=== PATIENT | male | born 1960 | race Asian ===

== ENCOUNTER → 2019-03-28 | Outpatient (CLI) | payer BC ==
[~2019-03-28] MED LIST: ATOR40TA70 PO; FEXO180T87 PO; FLONASE INH; IPRA0.2S51 IH; LISI-186 PO
[2019-03-28 09:56] LABS: BASOPHILS % 0.8 % (0.0-2.0); EOSINOPHILS % 1.9 % (0.0-5.0); HEMATOCRIT. 45.3 % (42.0-52.0); HEMOGLOBIN. 15.6 g/dL (14.0-18.0); LYMPHOCYTES % 26.8 % (20.0-50.0); MEAN CORPUSCULAR HEMOGLOBIN 31.5 pg (28.0-32.0); MEAN CORPUSCULAR VOLUME 91.7 fL (80.0-94.0); MEAN PLATELET VOLUME 6.5 fl (7.4-10.4); NEUTROPHILS % 63.5 % (40.0-76.0); PLATELET 253 x1000/uL (130-400); RED BLOOD CELL COUNT 4.94 mill/uL (4.7-6.1); RED CELL DISTRIBUTION WIDTH 12.9 % (11.6-14.6)
[2019-03-28 10:01] LABS: CHLORIDE 107 mEq/L (98-107)
[2019-03-28 10:09] LABS: HDL CHOLESTEROL 58 mg/dL (40-59); LDL CHOLESTEROL 104 mg/dL (5-100)
[2019-03-28 10:10] LABS: T4 FREE 1.02 ng/dL (0.76-1.46)
== END | disposition home or self-care (01) ==
LOC: CARD 09:28
PROVIDERS: ATTEND Specialist
DX: I10 Essential (primary) hypertension (principal); R94.31 Abnormal electrocardiogram [ECG] [EKG]
CPT/HCPCS: 36415; 80061; 84439; 84443; 84481; 93017; 93306

== ENCOUNTER → 2019-09-28 | Outpatient (CLI) | payer BC ==
[2019-09-28 09:36] LABS: BASOPHILS % 0.3 % (0.0-2.0); EOSINOPHILS % 1.6 % (0.0-5.0); HEMATOCRIT. 45.4 % (42.0-52.0); HEMOGLOBIN. 15.9 g/dL (14.0-18.0); MEAN CORPUSCULAR HEMOGLOBIN 32.2 pg (28.0-32.0); MEAN CORPUSCULAR VOLUME 92.2 fL (80.0-94.0); MEAN PLATELET VOLUME 6.6 fl (7.4-10.4); MONOCYTES % 8.1 % (2.0-8.0); PLATELET 246 x1000/uL (130-400); RED BLOOD CELL COUNT 4.93 mill/uL (4.7-6.1); RED CELL DISTRIBUTION WIDTH 12.7 % (11.6-14.6)
[2019-09-28 09:46] LABS: CHLORIDE 106 mEq/L (98-107)
[2019-09-28 09:53] LABS: LDL CHOLESTEROL 100 mg/dL (5-100)
[2019-09-28 09:54] LABS: HDL CHOLESTEROL 56 mg/dL (40-59)
== END | disposition home or self-care (01) ==
LOC: LAB 08:59
PROVIDERS: ATTEND Internal Medicine
DX: I10 Essential (primary) hypertension (principal); E78.00 Pure hypercholesterolemia, unspecified; M25.512 Pain in left shoulder
CPT/HCPCS: 36415; 80061

== ENCOUNTER → 2020-01-16 | Outpatient (CLI) | payer BC ==
[2020-01-16 08:11] LABS: BASOPHILS % 0.8 % (0.0-2.0); EOSINOPHILS % 1.8 % (0.0-5.0); HEMATOCRIT. 46.5 % (42.0-52.0); HEMOGLOBIN. 16.3 g/dL (14.0-18.0); LYMPHOCYTES % 27.3 % (20.0-50.0); MEAN CORPUSCULAR HEMOGLOBIN 32.3 pg (28.0-32.0); MEAN CORPUSCULAR VOLUME 92.1 fL (80.0-94.0); MEAN PLATELET VOLUME 6.5 fl (7.4-10.4); MONOCYTES % 9.2 % (2.0-8.0); NEUTROPHILS % 60.9 % (40.0-76.0); PLATELET 238 x1000/uL (130-400); RED BLOOD CELL COUNT 5.05 mill/uL (4.7-6.1); RED CELL DISTRIBUTION WIDTH 12.8 % (11.6-14.6)
[2020-01-16 13:39] LABS: CHLORIDE 106 mEq/L (98-107)
[2020-01-16 13:47] LABS: LDL CHOLESTEROL 115 mg/dL (5-100)
[2020-01-16 13:49] LABS: HDL CHOLESTEROL 60 mg/dL (40-59); T4 FREE 1.07 ng/dL (0.76-1.46)
== END | disposition home or self-care (01) ==
LOC: LAB 07:45
PROVIDERS: ATTEND Specialist
DX: I11.9 Hypertensive heart disease without heart failure (principal); E78.2 Mixed hyperlipidemia; R94.31 Abnormal electrocardiogram [ECG] [EKG]
CPT/HCPCS: 36415; 80053; 80061; 84439; 84443; 84481; 85025

== ENCOUNTER → 2020-09-17 | Outpatient (CLI) | payer BC ==
[2020-09-17 09:33] LABS: BASOPHILS % 0.5 % (0.0-2.0); EOSINOPHILS % 2.5 % (0.0-5.0); HEMATOCRIT. 46.7 % (42.0-52.0); HEMOGLOBIN. 15.9 g/dL (14.0-18.0); LYMPHOCYTES % 27.3 % (20.0-50.0); MEAN CORPUSCULAR HEMOGLOBIN 31.5 pg (28.0-32.0); MEAN CORPUSCULAR VOLUME 92.5 fL (80.0-94.0); MEAN PLATELET VOLUME 6.6 fl (7.4-10.4); MONOCYTES % 9.1 % (2.0-8.0); NEUTROPHILS % 60.6 % (40.0-76.0); PLATELET 217 x1000/uL (130-400); RED BLOOD CELL COUNT 5.05 mill/uL (4.7-6.1); RED CELL DISTRIBUTION WIDTH 12.8 % (11.6-14.6)
[2020-09-17 09:41] LABS: CHLORIDE 106 mEq/L (98-107)
[2020-09-17 09:48] LABS: LDL CHOLESTEROL 153 mg/dL (5-100)
[2020-09-17 09:49] LABS: HDL CHOLESTEROL 54 mg/dL (40-59)
[2020-09-17 10:14] LABS: CLARITY URINE CLEAR (CLEAR); COLOR URINE YELLOW (YELLOW); KETONES URINE NEGATIVE (NEGATIVE); LEUKOCYTE ESTERASE URINE NEGATIVE (NEGATIVE); NITRITE URINE NEGATIVE (NEGATIVE); OCCULT BLOOD URINE NEGATIVE (NEGATIVE); PROTEIN URINE NEGATIVE (NEGATIVE); SPECIFIC GRAVITY URINE 1.017 (1.005-1.030); UROBILINOGEN URINE 0.2 E.U./dL (0.2-1.0)
== END | disposition home or self-care (01) ==
LOC: LAB 09:03
PROVIDERS: ATTEND Internal Medicine
DX: Z12.5 Encounter for screening for malignant neoplasm of prostate (principal); Z00.00 Encounter for general adult medical examination without abnormal findings; E55.9 Vitamin D deficiency, unspecified
CPT/HCPCS: 36415; 80053; 80061; 81003; 84153; 84443; 85025; G0103

== ENCOUNTER → 2022-07-14 | Outpatient (CLI) | payer BC ==
[2022-07-14 12:00] LABS: BASOPHILS % 0.5 % (0.0-2.0); EOSINOPHILS % 2.6 % (0.0-5.0); HEMATOCRIT. 42.6 % (42.0-52.0); HEMOGLOBIN. 14.9 g/dL (14.0-18.0); LYMPHOCYTES % 21.1 % (20.0-50.0); MEAN CORPUSCULAR HEMOGLOBIN 32.1 pg (28.0-32.0); MEAN CORPUSCULAR VOLUME 92.1 fL (80.0-94.0); MEAN PLATELET VOLUME 6.2 fl (7.4-10.4); NEUTROPHILS % 61.8 % (40.0-76.0); PLATELET 153 x1000/uL (130-400); RED BLOOD CELL COUNT 4.63 mill/uL (4.7-6.1); RED CELL DISTRIBUTION WIDTH 13.1 % (11.6-14.6)
[2022-07-14 12:04] LABS: CHLORIDE 107 mEq/L (98-107)
[2022-07-14 12:13] LABS: HDL CHOLESTEROL 38 mg/dL (40-59); LDL CHOLESTEROL 137 mg/dL (5-100)
== END | disposition home or self-care (01) ==
LOC: LAB 11:25
PROVIDERS: ATTEND Specialist
DX: R19.7 Diarrhea, unspecified (principal)
CPT/HCPCS: 36415; 80053; 80061; 83036; 85025

== ENCOUNTER → 2022-08-26 | Outpatient (CLI) | payer BC ==
[2022-08-26 11:24] LABS: BASOPHILS % 0.7 % (0.0-2.0); EOSINOPHILS % 3.1 % (0.0-5.0); HEMOGLOBIN. 16.4 g/dL (14.0-18.0); LYMPHOCYTES % 30.6 % (20.0-50.0); MEAN CORPUSCULAR HEMOGLOBIN 32.2 pg (28.0-32.0); MEAN CORPUSCULAR VOLUME 92.1 fL (80.0-94.0); MEAN PLATELET VOLUME 6.5 fl (7.4-10.4); MONOCYTES % 8.8 % (2.0-8.0); NEUTROPHILS % 56.8 % (40.0-76.0); PLATELET 207 x1000/uL (130-400); RED BLOOD CELL COUNT 5.11 mill/uL (4.7-6.1); RED CELL DISTRIBUTION WIDTH 12.8 % (11.6-14.6)
[2022-08-26 11:25] LABS: CLARITY URINE CLEAR (CLEAR); COLOR URINE YELLOW (YELLOW); KETONES URINE NEGATIVE (NEGATIVE); LEUKOCYTE ESTERASE URINE NEGATIVE (NEGATIVE); NITRITE URINE NEGATIVE (NEGATIVE); OCCULT BLOOD URINE NEGATIVE (NEGATIVE); PH URINE 5.5 (4.5-8.0); PROTEIN URINE NEGATIVE (NEGATIVE); SPECIFIC GRAVITY URINE 1.021 (1.005-1.030); UROBILINOGEN URINE 0.2 E.U./dL (0.2-1.0)
[2022-08-26 12:57] LABS: CHLORIDE 104 mEq/L (98-107)
== END | disposition home or self-care (01) ==
LOC: LAB 10:45
PROVIDERS: ATTEND Internal Medicine
DX: Z12.5 Encounter for screening for malignant neoplasm of prostate (principal); Z00.00 Encounter for general adult medical examination without abnormal findings; E78.5 Hyperlipidemia, unspecified; R74.01 Elevation of levels of liver transaminase levels
CPT/HCPCS: 36415; 80053; 81003; 84153; 84443; 85025; 86705; 86709; 86803; 87340; G0103

== ENCOUNTER → 2022-09-11 | Outpatient (CLI) | payer BC | END | disposition home or self-care (01) | LOC: US 07:38 | PROVIDERS: ATTEND Internal Medicine | DX: K76.0 Fatty (change of) liver, not elsewhere classified (principal); R74.01 Elevation of levels of liver transaminase levels | CPT/HCPCS: 76705 ==

== ENCOUNTER 2022-09-20 17:25 | Inpatient (IN) | payer BC ==
[~2022-09-20] VITALS: Ht 167.6 cm; Wt 98.4 kg
[2022-09-20] MEDS ORDERED: AMLO10TA80 PO (17:37)
[2022-09-20] MEDS ORDERED: ACETAMINOPHEN 500MG TABLET PO STA (19:58)
[2022-09-20] MEDS ORDERED: SODIUM CHLORIDE 0.9% 1,000 ML IV ONE (20:00)
[2022-09-20] MEDS ORDERED: ONDANSETRON HCL 4MG/2ML INJ IV ONE (20:30)
[2022-09-20 20:44] LABS: BASOPHILS % 0.5 % (0.0-2.0); EOSINOPHILS % 1.5 % (0.0-5.0); HEMATOCRIT. 42.6 % (42.0-52.0); LYMPHOCYTES % 26.7 % (20.0-50.0); MEAN CORPUSCULAR HEMOGLOBIN 32.7 pg (28.0-32.0); MEAN CORPUSCULAR VOLUME 93.1 fL (80.0-94.0); MEAN PLATELET VOLUME 6.4 fl (7.4-10.4); MONOCYTES % 6.8 % (2.0-8.0); NEUTROPHILS % 64.5 % (40.0-76.0); PLATELET 185 x1000/uL (130-400); RED BLOOD CELL COUNT 4.58 mill/uL (4.7-6.1)
[2022-09-20 20:56] LABS: INR 1.1; PARTIAL THROMBOPLASTIN TIME 26.3 sec (23.4-31.0); PROTHROMBIN TIME 12.2 sec (9.6-11.0)
[2022-09-20 21:01] LABS: CHLORIDE 104 mEq/L (98-107)
[2022-09-20] MEDS ORDERED: ASPIRIN 81MG TABLET PO ONE (23:00)
[2022-09-20 23:23] LABS: BASOPHILS % 0.7 % (0.0-2.0); HEMATOCRIT. 41.8 % (42.0-52.0); HEMOGLOBIN. 14.7 g/dL (14.0-18.0); LYMPHOCYTES % 29.4 % (20.0-50.0); MEAN CORPUSCULAR HEMOGLOBIN 32.4 pg (28.0-32.0); MEAN CORPUSCULAR VOLUME 92.1 fL (80.0-94.0); MEAN PLATELET VOLUME 6.4 fl (7.4-10.4); MONOCYTES % 7.6 % (2.0-8.0); NEUTROPHILS % 60.3 % (40.0-76.0); PLATELET 169 x1000/uL (130-400); RED BLOOD CELL COUNT 4.53 mill/uL (4.7-6.1); RED CELL DISTRIBUTION WIDTH 12.8 % (11.6-14.6)
[2022-09-21] VITALS (7 sets, daily range): BP systolic 113–147; BP diastolic 74–93
[2022-09-21] MEDS ORDERED: HYDROCODONE/ACETAMINOPHEN 5/325MG TABLET PO PRN (03:15)
[2022-09-21] MEDS ORDERED: ONDANSETRON HCL 4MG/2ML INJ IV PRN (03:15)
[2022-09-21] MEDS: SODIUM CHLORIDE 0.9% 1,000 ML IV SCH ×2 (03:37→17:27)
[2022-09-21 06:42] LABS: EOSINOPHILS % 3.2 % (0.0-5.0); HEMATOCRIT. 39.7 % (42.0-52.0); LYMPHOCYTES % 36.5 % (20.0-50.0); MEAN CORPUSCULAR HEMOGLOBIN 32.9 pg (28.0-32.0); MEAN CORPUSCULAR VOLUME 93.2 fL (80.0-94.0); MEAN PLATELET VOLUME 6.3 fl (7.4-10.4); MONOCYTES % 9.3 % (2.0-8.0); PLATELET 173 x1000/uL (130-400); RED BLOOD CELL COUNT 4.26 mill/uL (4.7-6.1)
[2022-09-21] MEDS: ASPIRIN 81MG EC TABLET PO SCH (08:58)
[2022-09-21] MEDS: ENOXAPARIN 30MG/0.3ML SYR SUBCUT SCH ×2 (10:24→21:53)
[2022-09-21] MEDS ORDERED: REGADENOSON 0.4 MG/5 ML IV ONE (12:30)
[2022-09-21 13:40] LABS: CHLORIDE 106 mEq/L (98-107); HDL CHOLESTEROL 42 mg/dL (40-59); LDL CHOLESTEROL 116 mg/dL (5-100)
[2022-09-22] VITALS: BP 134/72
[2022-09-22 04:00] VITALS: BP 138/74
[2022-09-22 08:00] VITALS: BP 137/82
[2022-09-22] MEDS ORDERED: REGADENOSON 0.4 MG/5 ML IV ONE (08:51)
[2022-09-22] MEDS: ASPIRIN 81MG EC TABLET PO SCH (09:00)
[2022-09-22 09:13] LABS: CHLORIDE 106 mEq/L (98-107)
[2022-09-22] MEDS ORDERED: NALOXONE HCL 0.4MG/ML VIAL IV PRN (09:15)
[2022-09-22 09:25] LABS: HDL CHOLESTEROL 43 mg/dL (40-59); LDL CHOLESTEROL 130 mg/dL (5-100)
[2022-09-22] MEDS: SODIUM CHLORIDE 0.9% 1,000 ML IV SCH (09:39)
[2022-09-22] MEDS: ENOXAPARIN 30MG/0.3ML SYR SUBCUT SCH (09:58)
[2022-09-22 10:09] LABS: BASOPHILS % 0.8 % (0.0-2.0); EOSINOPHILS % 3.2 % (0.0-5.0); HEMATOCRIT. 40.9 % (42.0-52.0); HEMOGLOBIN. 14.3 g/dL (14.0-18.0); MEAN CORPUSCULAR HEMOGLOBIN 32.7 pg (28.0-32.0); MEAN CORPUSCULAR VOLUME 93.4 fL (80.0-94.0); MEAN PLATELET VOLUME 6.8 fl (7.4-10.4); MONOCYTES % 9.9 % (2.0-8.0); NEUTROPHILS % 52.1 % (40.0-76.0); PLATELET 166 x1000/uL (130-400); RED BLOOD CELL COUNT 4.38 mill/uL (4.7-6.1); RED CELL DISTRIBUTION WIDTH 12.7 % (11.6-14.6)
[2022-09-22 12:20] VITALS: BP_SYST 132; BP_SYST 163; BP_DIAS 82; BP_DIAS 95
[2022-09-22 13:22] VITALS: BP 132/82
[2022-09-22 16:00] VITALS: BP 145/89
[2022-09-22] MEDS ORDERED: ATORVASTATIN CALCIUM 20MG TABLET PO SCH (21:00)
== END 2022-09-22 16:20 | disposition home or self-care (01) | DRG 282 ==
LOC: ER 17:56 → MICUSO 23:00 → EDBEDREQ 23:05 → EDBEDREQTM 23:05 → 7WST 09-21 01:55
PROVIDERS: ADMIT Internal Medicine; ATTEND Internal Medicine
DX: I21.4 Non-ST elevation (NSTEMI) myocardial infarction (principal); I44.0 Atrioventricular block, first degree; E78.00 Pure hypercholesterolemia, unspecified; Z20.822 Contact with and (suspected) exposure to COVID-19; I10 Essential (primary) hypertension; S30.1XXA Contusion of abdominal wall, initial encounter; X58.XXXA Exposure to other specified factors, initial encounter; Y93.89 Activity, other specified; Y92.89 Other specified places as the place of occurrence of the external cause; Y99.8 Other external cause status; Z79.899 Other long term (current) drug therapy
CPT/HCPCS: 36415; 71260; 74177; 78452; 80048; 80053; 80061; 83036; 83735; 84484; 85025; 86850; 86900; 87426; 93005; 93017; 93306; 99285; A9500; J1650; J2785; J7030

== ENCOUNTER → 2023-01-22 | Outpatient (CLI) | payer BC ==
[~2023-01-22] MED LIST changes: +AMLO10TA80 PO; -LISI-186 PO
[2023-01-22 12:10] LABS: BASOPHILS % 0.8 % (0.0-2.0); EOSINOPHILS % 2.5 % (0.0-5.0); HEMATOCRIT. 45.2 % (42.0-52.0); HEMOGLOBIN. 15.9 g/dL (14.0-18.0); LYMPHOCYTES % 30.3 % (20.0-50.0); MEAN PLATELET VOLUME 6.5 fl (7.4-10.4); MONOCYTES % 8.9 % (2.0-8.0); NEUTROPHILS % 57.5 % (40.0-76.0); PLATELET 193 x1000/uL (130-400); RED BLOOD CELL COUNT 4.81 mill/uL (4.7-6.1)
[2023-01-22 12:27] LABS: INR 1.2; PARTIAL THROMBOPLASTIN TIME 28.3 sec (23.4-31.0); PROTHROMBIN TIME 12.6 sec (9.6-11.0)
[2023-01-22 12:33] LABS: CHLORIDE 108 mEq/L (98-107)
== END | disposition home or self-care (01) ==
LOC: LAB 11:39
PROVIDERS: ATTEND Internal Medicine
DX: Z01.812 Encounter for preprocedural laboratory examination (principal); I10 Essential (primary) hypertension; E78.5 Hyperlipidemia, unspecified
CPT/HCPCS: 36415; 80053; 85025

== ENCOUNTER → 2023-01-26 | Outpatient (CLI) | payer BC ==
[2023-01-26 10:37] LABS: CLARITY URINE CLEAR (CLEAR); COLOR URINE YELLOW (YELLOW); KETONES URINE NEGATIVE (NEGATIVE); LEUKOCYTE ESTERASE URINE NEGATIVE (NEGATIVE); NITRITE URINE NEGATIVE (NEGATIVE); OCCULT BLOOD URINE NEGATIVE (NEGATIVE); PH URINE 6.5 (4.5-8.0); PROTEIN URINE NEGATIVE (NEGATIVE); SPECIFIC GRAVITY URINE 1.013 (1.005-1.030); UROBILINOGEN URINE 0.2 E.U./dL (0.2-1.0)
== END | disposition home or self-care (01) ==
LOC: LAB 10:16
PROVIDERS: ATTEND Internal Medicine
DX: Z01.812 Encounter for preprocedural laboratory examination (principal)
CPT/HCPCS: 81003

== ENCOUNTER → 2023-02-02 | Day surgery (SDC) | payer BC ==
[~2023-02-02] VITALS: Ht 167.6 cm; Wt 93.0 kg
[~2023-02-02] MED LIST changes: +BUPIVACAINE HCL/PF 0.5% (5MG/ML) 10ML ONE; +CEFAZOLIN SODIUM 1000MG/VIAL ONE; +CHOL100046 PO; +DIPHENHYDRAMINE 50MG/ML VIAL IV PRN; +EZET10TA13 PO; +FENTANYL CITRATE/PF 50MCG/ML 2ML VIAL IV PRN; +FENTANYL CITRATE/PF 50MCG/ML 2ML VIAL ONE; +FOLI-43 PO; +HYDROCODONE/ACETAMINOPHEN 5/325MG TABLET PO PRN; +HYDROMORPHONE HCL/PF 2MG/ML CPJ IV PRN; +KETOROLAC 30MG/ML VIAL ONE; +LACT1CAP68 PO; +LACTATED RINGERS 1,000 ML IV SCH; +MEPERIDINE HCL/PF 25MG/ML CPJ IV PRN; +MIDAZOLAM HCL 2 MG/2 ML VIAL ONE; +OMEG-118 PO; +ONDANSETRON HCL 4MG/2ML INJ IV PRN; +ONDANSETRON HCL 4MG/2ML INJ ONE; +POLYMYXIN B SULFATE 500000 UNITS/VIAL ONE; +PROPOFOL 200MG/20ML VIAL IV ONE; +SKIN ADHESIVE 0.7 GM EA TOP ONE
[2023-02-02 09:24] VITALS: BP 147/92
== END | disposition home or self-care (01) ==
LOC: OR 05:44
PROVIDERS: ATTEND Surgery
DX: K43.9 Ventral hernia without obstruction or gangrene (principal); I10 Essential (primary) hypertension; E78.00 Pure hypercholesterolemia, unspecified; Z79.899 Other long term (current) drug therapy; Z98.890 Other specified postprocedural states; Z20.822 Contact with and (suspected) exposure to COVID-19
CPT/HCPCS: 49593; 87426; C1781; C9803; J0690; J1885; J2250; J2405; J2704; J3010; J3490

== ENCOUNTER 2023-02-19 10:30 | Emergency (ER) | payer BC ==
[~2023-02-19] VITALS: Ht 167.6 cm; Wt 93.0 kg
[~2023-02-19 10:30] MED LIST changes: -BUPIVACAINE HCL/PF 0.5% (5MG/ML) 10ML ONE; -CEFAZOLIN SODIUM 1000MG/VIAL ONE; -DIPHENHYDRAMINE 50MG/ML VIAL IV PRN; -FENTANYL CITRATE/PF 50MCG/ML 2ML VIAL IV PRN; -FENTANYL CITRATE/PF 50MCG/ML 2ML VIAL ONE; -HYDROCODONE/ACETAMINOPHEN 5/325MG TABLET PO PRN; -HYDROMORPHONE HCL/PF 2MG/ML CPJ IV PRN; -KETOROLAC 30MG/ML VIAL ONE; -LACTATED RINGERS 1,000 ML IV SCH; -MEPERIDINE HCL/PF 25MG/ML CPJ IV PRN; -MIDAZOLAM HCL 2 MG/2 ML VIAL ONE; -ONDANSETRON HCL 4MG/2ML INJ IV PRN; -ONDANSETRON HCL 4MG/2ML INJ ONE; -POLYMYXIN B SULFATE 500000 UNITS/VIAL ONE; -PROPOFOL 200MG/20ML VIAL IV ONE; -SKIN ADHESIVE 0.7 GM EA TOP ONE
[2023-02-19 11:51] LABS: CHLORIDE 107 mEq/L (98-107)
[2023-02-19 12:26] LABS: BASOPHILS % 0.3 % (0.0-2.0); EOSINOPHILS % 2.4 % (0.0-5.0); HEMATOCRIT. 42.5 % (42.0-52.0); HEMOGLOBIN. 14.9 g/dL (14.0-18.0); LYMPHOCYTES % 16.2 % (20.0-50.0); MEAN CORPUSCULAR HEMOGLOBIN 32.7 pg (28.0-32.0); MEAN CORPUSCULAR VOLUME 93.2 fL (80.0-94.0); MEAN PLATELET VOLUME 6.5 fl (7.4-10.4); MONOCYTES % 7.3 % (2.0-8.0); NEUTROPHILS % 73.8 % (40.0-76.0); PLATELET 168 x1000/uL (130-400); RED BLOOD CELL COUNT 4.56 mill/uL (4.7-6.1); RED CELL DISTRIBUTION WIDTH 12.8 % (11.6-14.6)
[2023-02-19] MEDS ORDERED: CEPH500T MT ×2 (12:58→14:16)
[2023-02-19] MEDS ORDERED: CEPHALEXIN 250MG CAPSULE PO ONE (13:00)
[2023-02-19] MEDS ORDERED: IOHEXOL-300 100 ML BOTTLE ONE (13:59)
[2023-02-19 14:20] VITALS: BP 155/88
== END 2023-02-19 15:10 | disposition home or self-care (01) ==
LOC: ER 10:30
DX: G89.18 Other acute postprocedural pain (principal)
CPT/HCPCS: 36415; 74177; 80053; 85025; 86850; 86900; 86901; 99285; Q9967; Z7610

== ENCOUNTER → 2023-06-03 | Outpatient (CLI) | payer BC ==
[~2023-06-03] MED LIST changes: +CEPH500T MT
[2023-06-03 09:36] LABS: BASOPHILS % 0.6 % (0.0-2.0); EOSINOPHILS % 3.4 % (0.0-5.0); HEMATOCRIT. 42.7 % (42.0-52.0); HEMOGLOBIN. 15.2 g/dL (14.0-18.0); LYMPHOCYTES % 34.2 % (20.0-50.0); MEAN CORPUSCULAR VOLUME 92.9 fL (80.0-94.0); MEAN PLATELET VOLUME 6.4 fl (7.4-10.4); MONOCYTES % 11.6 % (2.0-8.0); NEUTROPHILS % 50.2 % (40.0-76.0); PLATELET 173 x1000/uL (130-400); RED CELL DISTRIBUTION WIDTH 12.3 % (11.6-14.6)
[2023-06-03 11:23] LABS: CHLORIDE 108 mEq/L (98-107)
[2023-06-03 11:46] LABS: HDL CHOLESTEROL 52 mg/dL (40-59); LDL CHOLESTEROL 85 mg/dL (5-100)
== END | disposition home or self-care (01) ==
LOC: LAB 09:13
PROVIDERS: ATTEND Internal Medicine
DX: I10 Essential (primary) hypertension (principal); E78.5 Hyperlipidemia, unspecified; R74.01 Elevation of levels of liver transaminase levels
CPT/HCPCS: 36415; 80053; 80061; 85025

== ENCOUNTER → 2023-08-12 | Outpatient (CLI) | payer BC ==
[~2023-08-12] MED LIST changes: -EZET10TA13 PO; +EZET10TA81 PO
[2023-08-12 14:47] LABS: CHLORIDE 107 mEq/L (98-107); INDEX HEMOLYSI 1 (1-3); INDEX ICTERIC 1 (1-4); INDEX LIPEMIC 1 (1-3); SODIUM 140 mEq/L (136-145)
[2023-08-12 14:57] LABS: ALANINE AMINOTRANSFERASE 59 IU/L (13-61); ASPARTATE AMINOTRANSFERASE 33 IU/L (15-37); BILIRUBIN DIRECT 0.1 mg/dL (0.0-0.2); BILIRUBIN TOTAL 0.7 mg/dL (0.1-1.0); CALCIUM 8.7 mg/dL (8.5-10.1); CARBON DIOXIDE 27 mEq/L (21-32); CREATININE 0.9 mg/dL (0.6-1.3); GLUCOSE 100 mg/dL (70-105); PROTEIN TOTAL 6.9 g/dL (6.0-8.3); UREA NITROGEN BLOOD 17 mg/dL (7-21)
[2023-08-12 15:11] LABS: BASOPHILS % 0.7 % (0.0-2.0); EOSINOPHILS % 2.5 % (0.0-5.0); HEMATOCRIT. 44.2 % (42.0-52.0); HEMOGLOBIN. 15.3 g/dL (14.0-18.0); LYMPHOCYTES % 26.2 % (20.0-50.0); MEAN CORPUSCULAR HEMOGLOBIN 32.1 pg (28.0-32.0); MEAN CORPUSCULAR HGB CONC 34.6 g/dL (31.0-37.0); MEAN CORPUSCULAR VOLUME 92.8 fL (80.0-94.0); MEAN PLATELET VOLUME 6.8 fl (7.4-10.4); MONOCYTES % 7.8 % (2.0-8.0); NEUTROPHILS % 62.8 % (40.0-76.0); PLATELET 181 x1000/uL (130-400); RED BLOOD CELL COUNT 4.76 mill/uL (4.7-6.1); RED CELL DISTRIBUTION WIDTH 12.5 % (11.6-14.6); WHITE BLOOD COUNT 4.3 x1000/uL (4.5-11.0)
== END | disposition home or self-care (01) ==
LOC: LAB 14:00
PROVIDERS: ATTEND Internal Medicine
DX: R74.01 Elevation of levels of liver transaminase levels (principal); E78.5 Hyperlipidemia, unspecified; D72.819 Decreased white blood cell count, unspecified
CPT/HCPCS: 36415; 80048; 80076; 85025

== ENCOUNTER → 2023-10-25 | Outpatient (CLI) | payer BC ==
[2023-10-25 11:11] LABS: ALANINE AMINOTRANSFERASE 60 IU/L (10-49); ALBUMIN 4.2 g/dL (3.2-4.8); ASPARTATE AMINOTRANSFERASE 35 IU/L (<34); BILIRUBIN TOTAL 1.3 mg/dL (0.1-1.0); CALCIUM 9.3 mg/dL (8.7-10.4); CARBON DIOXIDE 30 mEq/L (21-32); CHLORIDE 106 mEq/L (98-107); CHOLESTEROL 189 mg/dL (<200); CREATININE 0.9 mg/dL (0.6-1.3); GLUCOSE 96 mg/dL (70-105); HDL CHOLESTEROL 45 mg/dL (>55); LDL CHOLESTEROL 111 mg/dL (5-100); POTASSIUM 4.4 mEq/L (3.5-5.1); PROTEIN TOTAL 7.4 g/dL (6.0-8.3); SODIUM 138 mEq/L (136-145); TRIGLYCERIDE 142 mg/dL (0-150); UREA NITROGEN BLOOD 17 mg/dL (9-23)
== END | disposition home or self-care (01) ==
LOC: LAB 10:25
PROVIDERS: ATTEND Internal Medicine
DX: E78.5 Hyperlipidemia, unspecified (principal)
CPT/HCPCS: 36415; 80053; 80061

== ENCOUNTER → 2024-01-18 | Outpatient (CLI) | payer BC ==
[2024-01-18 11:50] LABS: BASOPHILS % 0.7 % (0.0-2.0); EOSINOPHILS % 2.9 % (0.0-5.0); HEMOGLOBIN. 16.1 g/dL (14.0-18.0); LYMPHOCYTES % 26.2 % (20.0-50.0); MEAN CORPUSCULAR HEMOGLOBIN 32.4 pg (28.0-32.0); MEAN CORPUSCULAR VOLUME 92.8 fL (80.0-94.0); MEAN PLATELET VOLUME 6.5 fl (7.4-10.4); MONOCYTES % 9.5 % (2.0-8.0); NEUTROPHILS % 60.7 % (40.0-76.0); PLATELET 194 x1000/uL (130-400); RED BLOOD CELL COUNT 4.96 mill/uL (4.7-6.1); RED CELL DISTRIBUTION WIDTH 12.7 % (11.6-14.6); WHITE BLOOD COUNT 4.2 x1000/uL (4.5-11.0)
[2024-01-18 12:14] LABS: ALANINE AMINOTRANSFERASE 52 IU/L (10-49); ALBUMIN 4.8 g/dL (3.2-4.8); ASPARTATE AMINOTRANSFERASE 36 IU/L (<34); BILIRUBIN TOTAL 1.3 mg/dL (0.1-1.0); CALCIUM 9.1 mg/dL (8.7-10.4); CARBON DIOXIDE 30 mEq/L (21-32); CHLORIDE 106 mEq/L (98-107); CHOLESTEROL 149 mg/dL (<200); CREATININE 0.9 mg/dL (0.6-1.3); GLUCOSE 99 mg/dL (70-105); HDL CHOLESTEROL 53 mg/dL (>55); LDL CHOLESTEROL 78 mg/dL (5-100); POTASSIUM 4.6 mEq/L (3.5-5.1); PROTEIN TOTAL 7.6 g/dL (6.0-8.3); SODIUM 140 mEq/L (136-145); THYROID STIMULATING HORMONE 1.66 uIU/mL (0.55-4.78); TRIGLYCERIDE 73 mg/dL (0-150); UREA NITROGEN BLOOD 14 mg/dL (9-23)
== END | disposition home or self-care (01) ==
LOC: LAB 10:56
PROVIDERS: ATTEND Internal Medicine
DX: Z13.1 Encounter for screening for diabetes mellitus (principal); Z00.00 Encounter for general adult medical examination without abnormal findings; Z12.5 Encounter for screening for malignant neoplasm of prostate; I10 Essential (primary) hypertension; E66.9 Obesity, unspecified; E78.5 Hyperlipidemia, unspecified
CPT/HCPCS: 36415; 80053; 80061; 83036; 84153; 84443; 85025

== ENCOUNTER → 2024-05-24 | Outpatient (CLI) | payer BC ==
[2024-05-24 09:28] LABS: CHLORIDE 106 mEq/L (98-107); POTASSIUM 4.4 mEq/L (3.5-5.1); SODIUM 141 mEq/L (136-145)
[2024-05-24 09:30] LABS: CALCIUM 9.4 mg/dL (8.7-10.4); CARBON DIOXIDE 29 mEq/L (21-32)
[2024-05-24 09:35] LABS: CREATININE 0.9 mg/dL (0.6-1.3); GLUCOSE 100 mg/dL (70-105); TRIGLYCERIDE 105 mg/dL (0-150); UREA NITROGEN BLOOD 15 mg/dL (9-23)
[2024-05-24 09:36] LABS: ALANINE AMINOTRANSFERASE 46 IU/L (10-49); ASPARTATE AMINOTRANSFERASE 29 IU/L (<34); LDL CHOLESTEROL 127 mg/dL (5-100)
[2024-05-24 09:37] LABS: ALBUMIN 4.3 g/dL (3.2-4.8); BILIRUBIN TOTAL 1.1 mg/dL (0.1-1.0); CHOLESTEROL 186 mg/dL (<200); HDL CHOLESTEROL 51 mg/dL (>55); PROTEIN TOTAL 6.8 g/dL (6.0-8.3)
== END | disposition home or self-care (01) ==
LOC: LAB 08:56
PROVIDERS: ATTEND Internal Medicine
DX: E78.5 Hyperlipidemia, unspecified (principal)
CPT/HCPCS: 36415; 80053; 80061

== ENCOUNTER → 2024-08-31 | Outpatient (CLI) | payer BC ==
[2024-08-31 09:10] LABS: CALCIUM 9.5 mg/dL (8.7-10.4); CARBON DIOXIDE 29 mEq/L (21-32); CHLORIDE 108 mEq/L (98-107); POTASSIUM 4.8 mEq/L (3.5-5.1); SODIUM 141 mEq/L (136-145)
[2024-08-31 09:15] LABS: GLUCOSE 97 mg/dL (70-105)
[2024-08-31 09:16] LABS: TRIGLYCERIDE 95 mg/dL (0-150); UREA NITROGEN BLOOD 17 mg/dL (9-23)
[2024-08-31 09:17] LABS: ALANINE AMINOTRANSFERASE 49 IU/L (10-49); ALBUMIN 4.1 g/dL (3.2-4.8); ASPARTATE AMINOTRANSFERASE 33 IU/L (<34); CHOLESTEROL 138 mg/dL (<200); LDL CHOLESTEROL 67 mg/dL (5-100)
[2024-08-31 09:18] LABS: BILIRUBIN TOTAL 1.6 mg/dL (0.1-1.0); HDL CHOLESTEROL 54 mg/dL (>55); PROTEIN TOTAL 6.9 g/dL (6.0-8.3)
== END | disposition home or self-care (01) ==
LOC: LAB 08:24
PROVIDERS: ATTEND Internal Medicine
DX: E78.5 Hyperlipidemia, unspecified (principal); D72.819 Decreased white blood cell count, unspecified
CPT/HCPCS: 36415; 80053; 80061; 83036

== ENCOUNTER → 2025-01-19 | Outpatient (CLI) | payer BC ==
[2025-01-19 09:35] LABS: CLARITY URINE CLEAR (CLEAR); COLOR URINE YELLOW (YELLOW); GLUCOSE URINE NEGATIVE (NEGATIVE); KETONES URINE NEGATIVE (NEGATIVE); LEUKOCYTE ESTERASE URINE NEGATIVE (NEGATIVE); NITRITE URINE NEGATIVE (NEGATIVE); OCCULT BLOOD URINE NEGATIVE (NEGATIVE); PROTEIN URINE NEGATIVE (NEGATIVE); SPECIFIC GRAVITY URINE 1.018 (1.005-1.030); UROBILINOGEN URINE 0.2 E.U./dL (0.2-1.0)
[2025-01-19 09:39] LABS: CARBON DIOXIDE 31 mEq/L (21-32); CHLORIDE 105 mEq/L (98-107); POTASSIUM 4.6 mEq/L (3.5-5.1); SODIUM 141 mEq/L (136-145)
[2025-01-19 09:40] LABS: CALCIUM 9.2 mg/dL (8.7-10.4)
[2025-01-19 09:44] LABS: GLUCOSE 102 mg/dL (70-105)
[2025-01-19 09:45] LABS: TRIGLYCERIDE 75 mg/dL (0-150); UREA NITROGEN BLOOD 19 mg/dL (9-23)
[2025-01-19 09:46] LABS: ALANINE AMINOTRANSFERASE 40 IU/L (10-49); ALBUMIN 4.1 g/dL (3.2-4.8); ASPARTATE AMINOTRANSFERASE 28 IU/L (<34); BASOPHILS % 0.9 % (0.0-2.0); EOSINOPHILS % 3.8 % (0.0-5.0); HEMATOCRIT. 45.2 % (42.0-52.0); HEMOGLOBIN. 15.6 g/dL (14.0-18.0); LDL CHOLESTEROL 102 mg/dL (5-100); LYMPHOCYTES % 29.7 % (20.0-50.0); MEAN CORPUSCULAR HEMOGLOBIN 32.1 pg (28.0-32.0); MEAN CORPUSCULAR HGB CONC 34.5 g/dL (31.0-37.0); MEAN CORPUSCULAR VOLUME 93.3 fL (80.0-94.0); MEAN PLATELET VOLUME 6.7 fl (7.4-10.4); MONOCYTES % 8.9 % (2.0-8.0); NEUTROPHILS % 56.7 % (40.0-76.0); PLATELET 188 x1000/uL (130-400); RED BLOOD CELL COUNT 4.84 mill/uL (4.7-6.1); WHITE BLOOD COUNT 3.4 x1000/uL (4.5-11.0)
[2025-01-19 09:47] LABS: BILIRUBIN TOTAL 0.9 mg/dL (0.1-1.0); CHOLESTEROL 171 mg/dL (<200); HDL CHOLESTEROL 46 mg/dL (>55); PROTEIN TOTAL 6.8 g/dL (6.0-8.3)
== END | disposition home or self-care (01) ==
LOC: LAB 08:42
PROVIDERS: ATTEND Internal Medicine
DX: Z12.5 Encounter for screening for malignant neoplasm of prostate (principal); M17.0 Bilateral primary osteoarthritis of knee; M11.262 Other chondrocalcinosis, left knee; M11.261 Other chondrocalcinosis, right knee; M25.861 Other specified joint disorders, right knee; M25.862 Other specified joint disorders, left knee; M25.461 Effusion, right knee; M25.761 Osteophyte, right knee; M25.762 Osteophyte, left knee; I10 Essential (primary) hypertension; E78.5 Hyperlipidemia, unspecified; D72.819 Decreased white blood cell count, unspecified; Z13.1 Encounter for screening for diabetes mellitus; M25.562 Pain in left knee; M25.561 Pain in right knee
CPT/HCPCS: 36415; 73560; 80053; 80061; 81003; 83036; 84153; 85025

== ENCOUNTER → 2025-04-20 | Outpatient (CLI) | payer BC | END | disposition home or self-care (01) | LOC: MRI 13:34 | PROVIDERS: ATTEND Internal Medicine | DX: S83.231A Complex tear of medial meniscus, current injury, right knee, initial encounter (principal); M22.41 Chondromalacia patellae, right knee; M25.461 Effusion, right knee; M76.891 Other specified enthesopathies of right lower limb, excluding foot; M25.761 Osteophyte, right knee; M67.863 Other specified disorders of tendon, right knee; M25.861 Other specified joint disorders, right knee; M79.89 Other specified soft tissue disorders; R60.0 Localized edema; M47.814 Spondylosis without myelopathy or radiculopathy, thoracic region; M25.561 Pain in right knee; R05.9 Cough, unspecified; X58.XXXA Exposure to other specified factors, initial encounter; Y93.89 Activity, other specified; Y92.89 Other specified places as the place of occurrence of the external cause; Y99.8 Other external cause status | CPT/HCPCS: 71046; 73721 ==

== ENCOUNTER → 2025-08-30 | Outpatient (CLI) | payer BC ==
[2025-08-30 09:03] LABS: BASOPHILS % 0.5 % (0.0-2.0); EOSINOPHILS % 4.2 % (0.0-5.0); HEMATOCRIT. 45.0 % (42.0-52.0); HEMOGLOBIN. 15.8 g/dL (14.0-18.0); LYMPHOCYTES % 28.3 % (20.0-50.0); MEAN PLATELET VOLUME 6.5 fl (7.4-10.4); MONOCYTES % 10.9 % (2.0-8.0); NEUTROPHILS % 56.1 % (40.0-76.0); PLATELET 165 x1000/uL (130-400); RED BLOOD CELL COUNT 4.84 mill/uL (4.7-6.1); RED CELL DISTRIBUTION WIDTH 12.8 % (11.6-14.6)
[2025-08-30 09:19] LABS: CREATININE 1.0 mg/dL (0.6-1.3); TRIGLYCERIDE 155 mg/dL (0-150); UREA NITROGEN BLOOD 15 mg/dL (9-23)
[2025-08-30 09:20] LABS: LDL CHOLESTEROL 134 mg/dL (5-100)
[2025-08-30 09:21] LABS: ASPARTATE AMINOTRANSFERASE 32 IU/L (<34); BILIRUBIN TOTAL 1.1 mg/dL (0.1-1.0); PROTEIN TOTAL 6.7 g/dL (6.0-8.3)
== END | disposition home or self-care (01) ==
LOC: LAB 08:23
PROVIDERS: ATTEND Internal Medicine
DX: I10 Essential (primary) hypertension (principal); E78.5 Hyperlipidemia, unspecified; D72.819 Decreased white blood cell count, unspecified
CPT/HCPCS: 36415; 80053; 80061; 85025